=== PATIENT | male | born 1990 | race Caucasian/White ===

== ENCOUNTER 2016-09-20 16:11 | Emergency (ER) | payer BC ==
[2016-09-20 16:48] VITALS: BP 138/72
--- NOTE | 2016-09-20 19:55 | UC ---
Aden Steve SooYoung, scribed for TyroneZuly BridgesDO on 09/20/16 at 1653 . General HPI - HPI Summary HPI Summary: A 26 y/o M presents to [facility] with c/o fatigue and mild whitaker on/off, onset 5 days. Pt recently traveled to [place] and says he was bitten by a mosquito. Associated sx include mild fever (maxT 99), mild WHITAKER, itchy eyes - resolved, mild loss of appetite. Denies rash, sore throat, SOB, CP, n/v/d, athralgia, myalgia, melena. Pt rates WHITAKER currently in [facility] as 4 out of 10, at its worst a 6 out of 10. Pt is a newlywed, and concerned about transmitting Zika to his , if he does have it. fatigue is described as"not having as much pep and tenacity as usual, not waking up as early. - History of Current Complaint Chief Complaint: UCGeneralIllness Stated Complaint: FATIGUE Hx Obtained From: Patient Onset/Duration: Lasting Days - 5 days, Still Present Timing: Constant Onset Severity: Mild Current Severity: Mild Pain Intensity: 0 - out of 10, denies pain Associated Signs & Symptoms: Positive: Fever, Headache, Other - pos: fatigue. Negative: Abdominal Pain, Back Pain, Confusion, Cough, Chest Pain, Dizziness, Diarrhea, Melena, Nausea, SOB, Vomiting, Weakness - Allergy/Home Medications Allergies/Adverse Reactions: Allergies Allergy/AdvReac Type Severity Reaction Status Date / Time No Known Allergies Allergy Verified 09/20/16 16:48 Home Medications: Home Medications NK [No Home Medications Reported] 09/20/16 [History Confirmed 09/20/16] PMH/Surg Hx/FS Hx/Imm Hx Previously Healthy: Yes Endocrine History Of: Denies: Diabetes, Thyroid Disease Cardiovascular History Of: Denies: Cardiac Disorders, Hypertension Respiratory History Of: Reports: Asthma - "slight asthma." Denies: COPD GI/ History Of: Denies: Ulcer - Surgical History Surgical History: None - Family History Known Family History: Positive: Diabetes - grandparent Negative: Cardiac Disease, Hypertension - Social History Occupation: Student Lives: With Family Alcohol Use: Occasionally Substance Use Type: None Smoking Status (MU): Never Smoked Tobacco Review of Systems Constitutional: Fatigue Skin: Negative Eyes: Other - itchy eyes a couple of days ago - reolved ENT: Negative Respiratory: Negative Cardiovascular: Negative Gastrointestinal: Negative Genitourinary: Negative Motor: Negative Neurovascular: Negative Musculoskeletal: Negative Neurological: Negative Psychological: Negative All Other Systems Reviewed And Are Negative: Yes Physical Exam Triage Information Reviewed: Yes Appearance: Well-Appearing, No Pain Distress, Well-Nourished Vital Signs: Initial Vital Signs Temp 97.8 F 09/20/16 16:45 Pulse 55 09/20/16 16:45 Resp 18 09/20/16 16:45 BP 138/72 09/20/16 16:45 Pulse Ox 100 09/20/16 16:45 Vital Signs Reviewed: Yes Eyes: Positive: Conjunctiva Clear. Negative: Discharge ENT: Positive: Hearing grossly normal. Negative: Muffled/hoarse voice Neck exam: Normal Neck: Positive: Supple Respiratory: Positive: Chest non-tender, Lungs clear, Normal breath sounds, No respiratory distress Cardiovascular: Positive: RRR, No Murmur Musculoskeletal Exam: Normal Neurological: Positive: Alert, Muscle Tone Normal Psychological Exam: Normal Psychological: Positive: Age Appropriate Behavior Skin Exam: Normal, Other - dry, warm, nml color Course/Dx - Differential Dx - Multi-Symptom Differential Diagnoses: Other - fatigue, lyme, zika Provider Diagnoses: fatigue Discharge - Discharge Plan Condition: Stable Disposition: HOME Patient Education Materials: Zika Virus (ED) Additional Instructions: RIGHT NOW, WE HAVE RELATIVELY LOW SUSPICION FOR ZIKA VIRUS. SO, WE WILL NOT BE DOING TESTING HERE TONIGHT. HOWEVER, IF YOU CALL THE HEALTH DEPARTMENT IN THE MORNING, THEY WILL DO A THOROUGH INTERVIEW TO DETERMINE WHETHER OR NOT TESTING IS APPROPRIATE. YOU CAN CALL THEM AFTER 9AM TOMORROW AT [phone]. IN THE MEANTIME, WE RECOMMEND IF YOU ARE TO HAVE SEX, PLEASE USE A LATEX BARRIER (HAVE SAFE SEX.) The documentation as recorded by the Aden dunbar SooYoung accurately reflects the service I personally performed and the decisions made by me, Zuly Hansen DO.
== END 2016-09-20 18:50 | disposition home or self-care (01) ==
LOC: UCEAST 16:11
DX: R53.83 Other fatigue (principal); R51 Headache; R50.9 Fever, unspecified
CPT/HCPCS: 99201; G0463

== ENCOUNTER 2017-05-03 11:49 | Day surgery (SDC) | payer BC ==
[~2017-05-03 11:49] MED LIST: Buffered Lidocaine 0.9% SYRIN* 5 ML/SYR SYRINGE INTRADERM ONE; Famotidine IV* 10 MG/ML 2 ML (20 mg) IV ONE; Morphine INJ* 2 MG/ML 1 ML SYRINGE IV PRN; PROCHLORPERAZINE INJ 5 MG/ML 2 ML VIAL IV PRN; fentaNYL* 50 MCG/ML 2 ML VIAL (100 MCG VIAL) IV PRN; oxyCODONE/Acetamin 5/325 MG* TAB PO PRN
[2017-05-03] MEDS ORDERED: Buffered Lidocaine 0.9% SYRIN* 5 ML/SYR SYRINGE ONE (11:58)
[2017-05-03] MEDS ORDERED: Famotidine IV* 10 MG/ML 2 ML (20 mg) ONE (11:58)
[2017-05-03] MEDS ORDERED: KETAMINE HCL* 50 MG/ML 10 ML VIAL ONE (12:19)
[2017-05-03] MEDS ORDERED: fentaNYL* 50 MCG/ML 2 ML VIAL (100 MCG VIAL) ONE (12:19)
[2017-05-03] MEDS ORDERED: Midazolam* 1 MG/ML 5 ML VIAL (5 MG) ONE (12:19)
[2017-05-03] MEDS ORDERED: Oxymetazoline 0.05% NASAL SPR* 15 ML BTL ONE (13:03)
[2017-05-03] MEDS ORDERED: Lidocaine 4% TOPICAL* 50 ML TOP.SOLN ONE (13:04)
[2017-05-03] MEDS ORDERED: Lidocaine 1.5% EPI 1:200,000* 30 ML SDV ONE (13:06)
[2017-05-03] MEDS ORDERED: Bacitracin OINTMENT* 1 TUBE ONE (13:07)
[2017-05-03] MEDS ORDERED: Dexamethasone IV* 4 MG/ML 1 ML (4 MG) ONE (13:27)
[2017-05-03] MEDS ORDERED: Ondansetron INJ* 2 MG/ML VIAL ONE (13:27)
[2017-05-03] MEDS ORDERED: PROCHLORPERAZINE INJ 5 MG/ML 2 ML VIAL ONE (13:27)
[2017-05-03] MEDS ORDERED: Lidocaine 2% PF * 5 ML VIAL ONE (13:27)
[2017-05-03] MEDS ORDERED: Propofol* 10 MG/ML 20 ML BTL IV PUSH ONE (13:27)
[2017-05-03 15:09] VITALS: BP 118/84
--- NOTE | 2017-05-04 04:11 | OP ---
DATE OF OPERATION: 05/03/17 - [facility] DATE OF : 89 SURGEON: Alistair Lara MD ANESTHESIOLOGIST: Jose Ryan MD ANESTHESIA: General laryngeal mask airway anesthesia. PRE-OP DIAGNOSIS: Chronic maxillary ethmoidal sinusitis, nasal polyposis. POST-OP DIAGNOSIS: Chronic maxillary ethmoidal sinusitis, nasal polyposis. OPERATIVE PROCEDURE: Bilateral functional endoscopic sinus surgery with maxillary antrostomies with debridement of polyps and anterior ethmoidectomies under general laryngeal mask airway anesthesia. This was done using the image guidance system. COMPLICATIONS: None. DISPOSITION: Good. SPECIMEN: Left and right sinus contents and polyps. DESCRIPTION OF PROCEDURE: The patient was taken to the operating room, placed supine position on the operating room table, maintained with laryngeal mask airway anesthesia. His nose was packed bilaterally with oxymetazoline and 4% lidocaine. He was draped for the surgery. He was then registered to the image guidance system and the image guidance and the debrider and the seeker was used during the procedure to confirm location of the surgery. Initially, his middle turbinates, polyps, lateral wall were all injected with 1.5% lidocaine with 1: 100,000 epinephrine. The top polyps were debrided both with Blakesley and debrider. The location of the ostium and the maxillary sinus was verified with a curved seeker. The backbiter was used to make an inferior cut and then the uncinate process was debrided with a Blakesley. Inflammatory tissue and polypoid tissue at the maxillary ostium was debrided. The anterior ethmoid bulla was open, polyps debrided in this location as well. Stammberger Sinu- Foam was placed bilaterally, lateral to the middle turbinate. The patient tolerated the procedure well, no complications, and transferred to the recovery room in stable condition. [id number] #: [id number] MTDD
== END 2017-05-03 15:27 | disposition home or self-care (01) ==
LOC: OR 11:49
PROVIDERS: ATTEND Otolaryngology
DX: J32.0 Chronic maxillary sinusitis (principal); J32.2 Chronic ethmoidal sinusitis; J33.9 Nasal polyp, unspecified; J34.1 Cyst and mucocele of nose and nasal sinus
CPT/HCPCS: 88304; A9270-GY; J0780; J1100; J2250; J2405; J2704; J3010